=== PATIENT | male | born 1965 | race American Indian/Alaskan Native ===

== ENCOUNTER 2022-06-21 19:55 | Emergency (ER) | payer SELFPAY ==
[2022-06-21 21:17] LABS: Basophils % (Auto) 0.4 % (0.0-1.8); Eosinophils % (Auto) 0.2 % (0.0-4.3); Hematocrit 42.4 % (35.5-45.6); Hemoglobin 14.5 gm/dl (11.8-15.2); Lymphocytes # (Auto) 2.5 K/mm3 (1.2-5.4); Lymphocytes % (Auto) 26.7 % (13.4-35.0); Mean Corpuscular HGB Conc 34 % (32-34); Mean Corpuscular Volume 88 fl (84-94); Monocytes # (Auto) 0.7 K/mm3 (0.0-0.8); Monocytes % (Auto) 7.5 % (0.0-7.3); Platelet Count 256 K/mm3 (140-440); Red Blood Count 4.83 M/mm3 (3.65-5.03); Red Cell Distribution Width 14.7 % (13.2-15.2)
[2022-06-21 21:33] LABS: Alanine Aminotransferase 9 units/L (7-56); Albumin 4.5 g/dL (3.9-5); BUN/Creatinine Ratio 10; Blood Urea Nitrogen 12 mg/dL (9-20); Calcium 9.1 mg/dL (8.4-10.2); Hemolysis Index 12
--- NOTE | 2022-06-21 22:04 | Cat Scan Report ---
CT HEAD WITHOUT CONTRAST INDICATION / CLINICAL INFORMATION: Fall. Seizure and multiple falls with head trauma. TECHNIQUE: All CT scans at this location are performed using CT dose reduction for ALARA by means of automated exposure control. COMPARISON: None available. FINDINGS: HEMORRHAGE: None. EXTRA-AXIAL SPACES: Normal in size and morphology for the patient's age. VENTRICULAR SYSTEM: Normal in size and morphology for the patient's age. CEREBRAL PARENCHYMA: No significant abnormality. No acute territorial infarct. MIDLINE SHIFT / HERNIATION: None. CEREBELLUM / BRAINSTEM: No significant abnormality. ORBITS: Normal as visualized. SOFT TISSUES: No significant abnormality. SKULL: No significant abnormality. PARANASAL SINUSES / MASTOID AIR CELLS: There is complete opacification of the left maxillary antrum w ith extension of the mucosal thickening through the ostium into the adjacent nasal cavity. There is d iffuse thickening of the wall of the left maxillary antrum. ADDITIONAL FINDINGS: None. IMPRESSION: 1. No acute intracranial abnormality. 2. Chronic left maxillary sinusitis. Signer Name: Ankit Mariano MD Signed: 06/21/2022 10:00 PM Workstation Name: [id number]
[2022-06-22] MEDS ORDERED: ACETAMINOPHEN 500 MG TAB PO ONE (02:03)
[2022-06-22] MEDS ORDERED: ONDANSETRON 4 MG ODT TAB PO ONE (02:03)
[2022-06-22] MEDS ORDERED: TETANUS,DIPH,PERTUSS(ACELL) VACCINE 0.5 ML SYRINGE IM ONE (02:03)
[2022-06-22] MEDS ORDERED: LORazepam 1 MG TAB PO ONE (02:03)
[2022-06-22] MEDS ORDERED: LIDOCAINE (1%) 10 MG/1 ML VIAL 20 ML MDV INFILTRATI ONE (02:03)
[2022-06-22] MEDS ORDERED: IBUPROFEN 600 MG TAB PO ONE (02:03)
[2022-06-22] MEDS ORDERED: levETIRAcetam 500 MG TAB PO ONE (02:14)
--- NOTE | 2022-06-22 04:16 | Emergency Department Report ---
ED Seizure HPI - General Chief Complaint: Fall Stated Complaint: GASH ON FOREHEAD Source: patient Mode of arrival: Ambulatory Limitations: No Limitations - History of Present Illness Initial Comments: Patient is a 56-year-old -[place] male with a history of anxiety, depre ssion, bipolar disorder and seizures and who does not take medication for seizure presents to the ED with complaint of single episode of seizure disorder which resulted in him hitting his head against a metallic door frame about 6 hours ago. Family states that the patient had brief loss of consciousness following the seizures. Family states that the patient does not take any medication for seizure although his last seizure episode was about 8 months ago. Family also states the patient developed left supraorbital bleeding laceration. Family states the patient is not up-to-date with his tetanus vaccinations. Patient denies dizziness, syncope, nausea and vomiting, neck pain, chest pain, shortness of breath, abdominal pain, numbness and tingling or weakness of upper or lower extremities bilaterally or change in vision. MD Complaint: seizure, other (head laceration; head injury) -: hour(s) (6) Description of Episode: other (No LOC) Witnessed:: Yes Trauma: Yes (left supraorbital laceration) Seizure History: known seizure disorder, history of non-compliance, other (No taking any seizure medication) Place: home Possible Precipitating Event: head injury Associated Symptoms: denies other symptoms. denies: chest pain, cough, diaphoresis, fever/chills, loss of appetite, malaise, rash, shortness of breath, syncope, weakness, tongue injury, shoulder dislocation Treatments Prior to Arrival: none - Related Data Previous Rx's Medication Instructions Recorded Last Taken Type Ibuprofen [Motrin] 800 mg PO Q8HR PRN #30 tablet 06/22/22 Unknown Rx cephALEXin [Keflex] 500 mg PO Q8HR #30 cap 06/22/22 Unknown Rx levETIRAcetam [Keppra TAB] 500 mg PO Q12H #60 tablet 06/22/22 Unknown Rx Allergies Allergy/AdvReac Type Severity Reaction Status Date / Time No Known Allergies Allergy Unverified 06/21/22 20:53 ED Review of Systems ROS: Stated complaint: GASH ON FOREHEAD Other details as noted in HPI Constitutional: denies: chills, fever Eyes: other (bleeding left supraorbital laceration). denies: eye pain, eye discharge, vision change ENT: denies: ear pain, throat pain Respiratory: denies: cough, shortness of breath, wheezing Cardiovascular: denies: chest pain, palpitations Endocrine: no symptoms reported Gastrointestinal: denies: abdominal pain, nausea, vomiting, diarrhea Genitourinary: denies: urgency, dysuria Musculoskeletal: denies: back pain, joint swelling, arthralgia Skin: denies: rash, lesions Neurological: headache, other (seizure). denies: weakness, paresthesias Psychiatric: denies: anxiety, depression, auditory hallucinations, visual hallucinations Hematological/Lymphatic: denies: easy bleeding, easy bruising ED Past Medical Hx - Past Medical History Hx Seizures: Yes Hx Psychiatric Treatment: Yes (Bipolar d/o; Anxiety, depression) - Medications Home Medications: Home Medications Medication Instructions Recorded Confirmed Last Taken Type Ibuprofen [Motrin] 800 mg PO Q8HR PRN #30 tablet 06/22/22 Unknown Rx cephALEXin [Keflex] 500 mg PO Q8HR #30 cap 06/22/22 Unknown Rx levETIRAcetam [Keppra TAB] 500 mg PO Q12H #60 tablet 06/22/22 Unknown Rx ED Physical Exam - General Limitations: No Limitations General appearance: alert, in no apparent distress - Head Head exam: Present: other (left supraorbital bleeding laceration) - Eye Eye exam: Present: normal appearance, PERRL, EOMI Pupils: Present: normal accommodation - ENT ENT exam: Present: normal exam, normal orophraynx, mucous membranes moist, TM's normal bilaterally, normal external ear exam - Neck Neck exam: Present: normal inspection, full ROM. Absent: tenderness - Respiratory Respiratory exam: Present: normal lung sounds bilaterally. Absent: respiratory distress, wheezes, rales, rhonchi, chest wall tenderness, accessory muscle use, decreased breath sounds, prolonged expiratory - Cardiovascular Cardiovascular Exam: Present: regular rate, normal rhythm, normal heart sounds. Absent: systolic murmur, diastolic murmur, rubs, gallop - GI/Abdominal GI/Abdominal exam: Present: soft, normal bowel sounds. Absent: tenderness, guarding, rebound, hyperactive bowel sounds, hypoactive bowel sounds, organomegaly - Extremities Exam Extremities exam: Present: normal inspection, full ROM, normal capillary refill. Absent: tenderness - Back Exam Back exam: Present: normal inspection, full ROM. Absent: tenderness, CVA tenderness (R), CVA tenderness (L), muscle spasm, paraspinal tenderness, vertebral tenderness - Neurological Exam Neurological exam: Present: alert, oriented X3, CN II-XII intact, normal gait, reflexes normal - Psychiatric Psychiatric exam: Present: normal affect, normal mood - Skin Skin exam: Present: warm, dry, intact, normal color, other (Bleeding 4 cm left supraorbital laceration). Absent: rash ED Course Vital Signs 06/21/22 20:49 Temperature 98.2 F Pulse Rate 84 Respiratory 18 Rate Blood Pressure 106/68 [Right] O2 Sat by Pulse 95 Oximetry - Laceration /Wound Repair Left Face Wound Location: face (left supraorbital bleeding laceration) Wound Length (cm): 4 Wound's Depth, Shape: superficial, linear, irregular Wound Explored: contaminated Irrigated w/ Saline (ccs): 200 Betadine Prep?: Yes Anesthesia: 1% Lidocaine Volume Anesthetic (ccs): 5 Wound Debrided: extensive Wound Repaired With: sutures Suture Size/Type: 5:0, proline Number of Sutures: 13 Layer Closure?: Yes Sterile Dressing Applied?: No Progress: The ear was cleaned extensively with normal saline and Betadine solution. Lidocaine 1% solution was used to infiltrate around the wound local anesthesia. When anesthesia was fully checked, the wound was sutured per protocol using Prolene 5-0 sutures for total of 13 sutures. The wound was cleaned extensively and the patient tolerated the procedure well. Bleeding is well controlled. ED Medical Decision Making - Lab Data Result diagrams: 06/21/22 20:56 06/21/22 20:56 - Radiology Data Radiology results: report reviewed, image reviewed [facility] [address] [place] [address] Cat Scan Report Signed Patient: VENTURA PARKINSON MR#: [id number] 0 : 1965 Acct:[id number] Age/Sex: 56 / M ADM Date: 06/21/22 Loc: ED Attending Dr: Ordering Physician: SHAWNEE JARQUIN MD Date of Service: 06/21/22 Procedure(s): CT head/brain wo con Accession Number(s): [id number] cc: SHAWNEE JARQUIN MD CT HEAD WITHOUT CONTRAST INDICATION / CLINICAL INFORMATION: Fall. Seizure and multiple falls with head trauma. TECHNIQUE: All CT scans at this location are performed using CT dose reduction for ALARA by means of automated exposure control. COMPARISON: None available. FINDINGS: HEMORRHAGE: None. EXTRA-AXIAL SPACES: Normal in size and morphology for the patient's age. VENTRICULAR SYSTEM: Normal in size and morphology for the patient's age. CEREBRAL PARENCHYMA: No significant abnormality. No acute territorial infarct. MIDLINE SHIFT / HERNIATION: None. CEREBELLUM / BRAINSTEM: No significant abnormality. ORBITS: Normal as visualized. SOFT TISSUES: No significant abnormality. SKULL: No significant abnormality. PARANASAL SINUSES / MASTOID AIR CELLS: There is complete opacification of the left maxillary antrum with extension of the mucosal thickening through the ostium into the adjacent nasal cavity. There is diffuse thickening of the wall of the left maxillary antrum. ADDITIONAL FINDINGS: None. IMPRESSION: 1. No acute intracranial abnormality. 2. Chronic left maxillary sinusitis. Signer Name: Ankit Mariano MD Signed: 06/21/2022 10:00 PM Workstation Name: [id number] Transcribed By: RT Dictated By: Ankit Mariano MD Electronically Authenticated By: Ankit Mariano MD Signed Date/Time: 06/21/222199 DD/ 56 TD/TT: - Medical Decision Making This is a 56-year-old -[place] male with a history of anxiety, depression, bipolar disorder and seizures and who does not take medication for seizure presents to the ED with complaint of single episode of seizure disorder which resulted in him hitting his head against a metallic door frame about 6 hours ago. Family states that the patient had brief loss of consciousness following the seizures. Family states that the patient does not take any medication for seizure although his last seizure episode was about 8 months ago. Family also states the patient developed left supraorbital bleeding laceration. Family states the patient is not up-to-date with his tetanus vaccinations. In the ED, patient is alert and oriented x3 and is not in any distress. Patient was treated for pain in the ED. Patient was also treated for seizures with Keppra 1 g p.o. x1 as well as Ativan 1 mg p.o. x1. On reevaluation, patient's pain is well controlled medication. Head CT scan without contrast showed no acute intracranial abnormalities except for extensive left maxillary sinus opacification consistent with chronic sinusitis. All lab test results were reviewed and are all nonactionable. The left supraorbital bleeding laceration was sutured with protocol and the patient tolerated the procedure well. Patient was discharged home on medications and advised to follow-up with his primary care physician in 7 to 10 days for reevaluation. Patient was also advised to return to the ED immediately if symptoms get worse. Patient was advised to return to the ED or follow-up with his primary care physician in 8 to 10 days for suture removal. - Differential Diagnosis sinusitis; seizures; tension headache; facial contusion; facial laceration Critical care attestation.: If time is entered above; I have spent that time in minutes in the direct care of this critically ill patient, excluding procedure time. ED Disposition Clinical Impression: Seizure disorder, Chronic left maxillary sinusitis Tension-type headache Qualifiers: Headache chronicity pattern: acute headache Intractability: not intractable Qualified Code(s): G44.209 - Tension-type headache, unspecified, not intractable Complex laceration of face Qualifiers: Encounter type: initial encounter Qualified Code(s): S01.91XA - Laceration without foreign body of unspecified part of head, initial encounter Contusion of scalp Qualifiers: Encounter type: initial encounter Qualified Code(s): S00.03XA - Contusion of scalp, initial encounter Disposition: 01 HOME / SELF CARE / HOMELESS Is pt being admited?: No Does the pt Need Aspirin: No Condition: Stable Instructions: Sinusitis, Adult, [id number], Tension Headache, Adult, [id number], Facial or Scalp Contusion, [id number], Contusion, [id number], Sinus Headache, [id number]-iv-Risu, Seizure, Adult, [id number], Sutured Wound Care, [id number]-[id number] Additional Instructions: All lab test results were reviewed and are nonactionable. CT scan without contrast showed no acute intracranial abnormalities or hemorrhage except for extensively opacified left maxillary sinus consistent with chronic sinusitis. Therefore take medication with food, drink plenty of fluids, follow-up with your primary care physician in 7 to 10 days for reevaluation. Return to the ED immediately if symptoms get worse. Otherwise return to the ED in 8 to 10 days for suture removal. Prescriptions: cephALEXin [Keflex] 500 mg PO Q8HR #30 cap levETIRAcetam [Keppra TAB] 500 mg PO Q12H #60 tablet Ibuprofen [Motrin] 800 mg PO Q8HR PRN #30 tablet PRN Reason: Pain , Severe (7-10) Referrals: Kajal BEATTY MD [Other] - 3-5 Days Time of Disposition: 04:22 Print Language: KOSOVAN
[2022-06-22 05:31] VITALS: BP 141/71
== END 2022-06-22 05:30 | disposition home or self-care (01) ==
LOC: ED 19:55
DX: S01.81XA Laceration without foreign body of other part of head, initial encounter (principal); G40.909 Epilepsy, unspecified, not intractable, without status epilepticus; G44.209 Tension-type headache, unspecified, not intractable; J32.0 Chronic maxillary sinusitis; F31.9 Bipolar disorder, unspecified; W22.8XXA Striking against or struck by other objects, initial encounter; Y93.89 Activity, other specified; Y92.89 Other specified places as the place of occurrence of the external cause; Y99.8 Other external cause status
CPT/HCPCS: 36415; 70450; 80053; 85025; 90471; 90715; 99284; J3490; Q0162

== ENCOUNTER 2022-07-02 11:33 | Emergency (ER) | payer SELFPAY ==
--- NOTE | 2022-07-02 12:13 | Emergency Department Report ---
Suture/Staple Removal - HPI Chief Complaint: Laceration/Recheck/Suture Stated Complaint: SUTURE REMOVAL Time Seen by Provider: 07/02/22 12:12 When Sutures or Nura Placed: 8-10 Days Ago ED Review of Systems ROS: Stated complaint: SUTURE REMOVAL Other details as noted in HPI Comment: All other systems reviewed and negative Constitutional: denies: fever Neurological: denies: headache ED Past Medical Hx - Past Medical History Hx Seizures: Yes Hx Psychiatric Treatment: Yes (Bipolar d/o; Anxiety, depression) - Medications Home Medications: Home Medications Medication Instructions Recorded Confirmed Last Taken Type Ibuprofen [Motrin] 800 mg PO Q8HR PRN #30 tablet 06/22/22 Unknown Rx cephALEXin [Keflex] 500 mg PO Q8HR #30 cap 06/22/22 Unknown Rx levETIRAcetam [Keppra TAB] 500 mg PO Q12H #60 tablet 06/22/22 Unknown Rx Suture Removal Exam - Exam General: Vital signs noted. No distress. Alert and acting appropriately. Wound: No Pathologic Erythema, No Tenderness, No Drainage, No Pus, No Wound Dehiscence Other Systems: All other systems reviewed and are unremarkable. - Procedure Description Procedures done: Suture removal: Sutures noted to be dry and intact with wound mostly healed and well approximated. 12 sutures removed facial lacerations. No erythema, edema, or drainage noted. Patient tolerated well. ED Recheck MDM - Differential Diagnosis Suture/Staple Removal - Medical Decision Making Suture removal per my procedure note. Patient tolerated well. Critical care attestation.: If time is entered above; I have spent that time in minutes in the direct care of this critically ill patient, excluding procedure time. ED Disposition Clinical Impression: Visit for suture removal Disposition: 01 HOME / SELF CARE / HOMELESS Is pt being admited?: No Does the pt Need Aspirin: No Condition: Stable Instructions: Suture Removal, Care After Additional Instructions: Follow-up with primary care provider as needed. Return to the ER as needed. Referrals: BREE REED MD [Staff Physician] - 3-5 Days Time of Disposition: 12:15
[2022-07-02 12:16] VITALS: BP 152/85
== END 2022-07-02 13:00 | disposition home or self-care (01) ==
LOC: ED 11:33
DX: S01.81XD Laceration without foreign body of other part of head, subsequent encounter (principal); Z48.02 Encounter for removal of sutures; F31.9 Bipolar disorder, unspecified